=== PATIENT | male | born 1965 | race Caucasian/White ===

== ENCOUNTER 2017-06-15 08:11 | Emergency (ER) | payer BC ==
--- NOTE | 2017-06-15 08:57 | EDM.PDOC ---
ED HPI GENERAL MEDICAL PROBLEM - General Chief Complaint: Back Pain or Injury Stated Complaint: BACK PAIN STARTS AT BELT LINE GOES UP BACK Time Seen by Provider: 06/15/17 08:42 Source of Information: Reports: Patient, RN Notes Reviewed History Limitations: Reports: No Limitations - History of Present Illness INITIAL COMMENTS - FREE TEXT/NARRATIVE: 52-year-old gentleman presents to the emergency department today complaint of low back pain, he has had low back pain for several years he is not sure if he exacerbated at work or had a lifting injury denies any trauma, uses a combination of diclofenac and Robaxin to help control his back pain, was evaluated by urgent care about 2 weeks ago. He states those medications don't necessarily help much, he is interested in getting x-rays of his back, denies any loss of bowel or bladder or fevers back pain Pain Score (Numeric/FACES): 7 - Related Data Allergies Allergy/AdvReac Type Severity Reaction Status Date / Time No Known Allergies Allergy Verified 06/15/17 08:28 Home Meds: Home Meds Diclofenac Sodium [IJD: Diclofenac Sodium] 75 mg PO .TWICE DAILY W MEALS [History] Methocarbamol 500 mg PO QID PRN 06/15/17 [History] Past Medical History Musculoskeletal History: Reports: Back Pain, Chronic, Other (See Below) Other Musculoskeletal History: 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 Social & Family History - Tobacco Use Smoking Status *Q: Former Smoker Used Tobacco, but Quit: Yes Month Tobacco Last Used: aug - Recreational Drug Use Recreational Drug Use: No ED ROS GENERAL - Review of Systems Review Of Systems: See Below Constitutional: Reports: No Symptoms GI/Abdominal: Reports: No Symptoms Musculoskeletal: Reports: Back Pain ED EXAM,LOWER BACK PAIN/INJURY - Physical Exam Exam: See Below Exam Limited By: No Limitations General Appearance: Alert, WD/WN, No Apparent Distress Respiratory/Chest: No Respiratory Distress Back Exam: Normal Inspection, Decreased Range of Motion, Paraspinal Tenderness. No: CVA Tenderness (R), CVA Tenderness (L), Muscle Spasm, Vertebral Tenderness Neurological: No: Straight Leg Raise (L), Straight Leg Raise (R), Difficulty Walking DTR - Lower Extremities: 2+: Knee (R), 3+: Knee (L) Course - Vital Signs Last Recorded V/S: Last Vital Signs Temp 96.3 F 06/15/17 08:27 Pulse 72 06/15/17 08:27 Resp 16 06/15/17 08:27 BP 143/83 H 06/15/17 08:27 Pulse Ox 96 06/15/17 08:27 Departure - Departure Time of Disposition: 08:56 Disposition: Home, Self-Care 01 Condition: Good Clinical Impression: Low back pain Qualifiers: Chronicity: chronic Back pain laterality: bilateral Sciatica presence: without sciatica Qualified Code(s): M54.5 - Low back pain; G89.29 - Other chronic pain; G89.29 - Other chronic pain - Discharge Information Referrals: PCP,None [Primary Care Provider] - Additional Instructions: Continue using your current medications, please establish with a primary care provider for further evaluation of your back pain, call return to the emergency department worsening of symptoms - Assessment/Plan Plan: Assessment Acuity = chronic Site and laterality = low back pain Etiology = unclear etiology Manifestations = none Location of injury = Home Lab values = none Plan I did review options and evaluation for low back pain which would include immediate pain relief, image studies which may include an MRI, physical therapy , and possibly epidural injections, he declined any immediate pain relief felt his pain level was tolerable on his current medication dose he is going to establish with a primary care provider for further evaluation of his chronic back pain which may include any of the above recommendations Patient was in agreement with the plan all questions were answered, they were instructed to return to the emergency department or call for worsening symptoms. This note was dictated using [employer] voice recognition software please call with any questions.
== END 2017-06-15 09:10 | disposition home or self-care (01) ==
LOC: JP.ED 08:11
DX: M54.5 Low back pain (principal); G89.29 Other chronic pain; Z87.891 Personal history of nicotine dependence
CPT/HCPCS: 99283

== ENCOUNTER 2018-04-03 08:01 | Day surgery (SDC) | payer BC ==
[2018-04-03] MEDS ORDERED: Lactated Ringers 1,000 ML IV SCH (08:30)
[2018-04-03] MEDS ORDERED: Propofol 200 MG/20 ML SDV ONE (09:18)
[2018-04-03] MEDS ORDERED: Midazolam 1 MG/ML 2 ML SDV ONE (09:18)
[2018-04-03] MEDS ORDERED: fentaNYL 100 MCG/2 ML SDV ONE (09:18)
--- NOTE | 2018-04-04 08:08 | OR ---
DATE OF PROCEDURE: 04/03/2018 PREOPERATIVE DIAGNOSIS: Colon cancer screening. POSTOPERATIVE DIAGNOSIS: Unremarkable colonoscopy. PROCEDURE: Colonoscopy to the cecum. SURGEON: Campos Parekh MD ANESTHESIA: IV anesthesia with monitored anesthesia care. INDICATION: This 53-year-old white male is referred for a colonoscopy for colon cancer screening. He has never had a colonoscopic exam. I counseled him for the procedure, including risks and alternatives, and he gave his informed consent to proceed. PROCEDURE DETAILS: The patient was placed in the left lateral decubitus position. IV anesthesia was administered by the Anesthesia Service. Time-out was held. A rectal exam was performed, which was unremarkable. The flexible video Olympus colonoscope was introduced through his anus, up his rectum, and out his colon all way to the cecum. Once the cecum was reached, the scope was slowly withdrawn, examining the mucosa throughout. No mucosal abnormalities were noted. The scope was retroflexed in the rectum with the distal rectum appearing unremarkable. The scope was straightened and removed. He tolerated the procedure well. Campos Parekh MD /[id number]
== END 2018-04-03 10:55 | disposition home or self-care (01) ==
LOC: JP.SDS 08:01
PROVIDERS: ATTEND Surgery
DX: Z12.11 Encounter for screening for malignant neoplasm of colon (principal); E66.9 Obesity, unspecified; Z87.891 Personal history of nicotine dependence
CPT/HCPCS: 45378; J2250; J2704; J3010; J7120